=== PATIENT | female | born 1940 | race Caucasian/White ===

== ENCOUNTER 2018-10-04 07:34 | Emergency (ER) | payer MEDICARE, OTHER ==
[~2018-10-04] VITALS: Ht 167.6 cm; Wt 83.1 kg
--- NOTE | 2018-10-04 07:52 | NUR ---
DX UTI FRIDAY AT [facility]RG[facility], LAST NIGHT LOWER BACK PAIN, FEVER/CHILLS PER TRIAGE NOTE
[2018-10-04] MEDS ORDERED: LEVO100T5 PO (07:57)
[2018-10-04] MEDS ORDERED: NITR100C56 PO (07:57)
[2018-10-04] MEDS ORDERED: GABA300C10 PO (07:57)
--- NOTE | 2018-10-04 07:58 | NUR ---
PT STATED pt had hx of kidney stone in the past vss stable pt stated pt cant take macrobid d/t having some reaction before but this time pt stated she didnt think that med took home med updated vss stable
[2018-10-04 08:37] LABS: BASOPHILS # (AUTO) 0.01 x10^3/uL (0-0.1); BASOPHILS % (AUTO) 0 % (0-1); EOSINOPHILS # (AUTO) 0.38 x10^3/uL (0-0.4); EOSINOPHILS % (AUTO) 5 % (1-7); LYMPHOCYTES # (AUTO) 0.98 x10^3/uL (1-3.4); LYMPHOCYTES % (AUTO) 12 % (22-44); MD NO; MEAN CORPUSCULAR HEMOGLOBIN 31.7 pg (27.0-34.8); MEAN CORPUSCULAR HGB CONC 33.7 g/dL (32.4-35.8); MEAN CORPUSCULAR VOLUME 93.9 fL (80-100); MEAN PLATELET VOLUME 9.3 fL (7.4-10.4); MONOCYTES # (AUTO) 0.38 x10^3/uL (0.2-0.8); MONOCYTES % (AUTO) 5 % (2-9); NEUTROPHILS # (AUTO) 6.69 x10^3/uL (1.8-6.8); NEUTROPHILS % (AUTO) 79 % (42-75); PLATELET COUNT 169 x10^3/uL (130-400); RED CELL DISTRIBUTION WIDTH 15.5 % (9.6-15.2)
--- NOTE | 2018-10-04 08:42 | NUR ---
straight cath was done with sterile technique pt tolerated well
[2018-10-04 08:47] LABS: ALANINE AMINOTRANSFERASE 24 U/L (12-78); ALBUMIN 3.3 g/dL (3.4-5.0); ANION GAP 6 mmol/L (5-15); CALCIUM 8.8 mg/dL (8.5-10.1); CHLORIDE 107 mmol/L (98-107)
[2018-10-04 08:48] LABS: MICROSCOPIC AUTO
[2018-10-04 08:49] LABS: ALKALINE PHOSPHATASE 102 U/L (45-117); BILIRUBIN,TOTAL 0.5 mg/dL (0.2-1.0); TOTAL PROTEIN 6.6 g/dL (6.4-8.2)
[2018-10-04 08:57] LABS: CULTURE INDICATED? YES
--- NOTE | 2018-10-04 09:19 | NUR ---
pt is still waiting for md recheck
[2018-10-04 11:34] VITALS: BP 125/76
== END 2018-10-04 11:36 | disposition home or self-care (01) ==
LOC: ED 11:03
DX: N30.00 Acute cystitis without hematuria (principal); Z87.891 Personal history of nicotine dependence
CPT/HCPCS: 36415; 74177; 80053; 81001; 83690; 85025; 87086; 99284